=== PATIENT | female | born 1990 | race Caucasian/White ===

== ENCOUNTER 2016-08-30 08:08 | Emergency (ER) | payer SELFPAY ==
[~2016-08-30] VITALS: Ht 160 cm; Wt 50.0 kg
[2016-08-30 08:13] VITALS: Ht 160 cm; Wt 50.0 kg
--- NOTE | 2016-08-30 10:03 | ERA ---
ER Documentation Chief Complaint Date/Time DATE: 08/30/16 TIME: 09:57 Chief Complaint BROUGHT IN VIA EMS AND [employer] DUE TO ANXIETY HPI This 25-year-old female who apparently got in a taxicab and asked to go to a certain location. When the emt driver was told that the patient does not have any money he brought her back to her original point of origin. Patient was very upset started talking about suicide so the ambulance was called. Patient says she suicidal currently and if she can grab a knife right now she would take it and try to kill herself by stabbing herself. Patient says she tried to kill herself once by trying to overdose on melatonin. She was admitted to a [facility] hospital at that time. Patient says she is homeless and she is sick of sleeping in the wet grass ROS All systems reviewed and are negative except as per history of present illness. Medications Home Meds No Active Prescriptions or Reported Meds Allergies Allergies: Coded Allergies: No Known Allergy (Unverified , 08/30/16) PMhx/Soc History of Surgery: Yes (ABDOMINAL SURGERY ) Anesthesia Reaction: No Hx Alcohol Use: Yes Hx Substance Use: Yes Hx Tobacco Use: Yes Smoking Status: Current every day smoker FmHx Family History: No coronary disease Physical Exam Vitals Vital Signs Date Time Temp Pulse Resp B/P Pulse Ox O2 Delivery O2 Flow Rate FiO2 08/30/16 08:13 98.5 82 18 112/76 99 Physical Exam Const: Well-developed, well-nourished Head: Atraumatic, normocephalic Eyes: Normal Conjunctiva, PERRLA, EOMI, normal sclera, no nystagmus ENT: Normal External Ears, Nose and Mouth, moist mucus membranes. Neck: Full range of motion. No meningismus, no lymphadenopathy. Resp: Clear to auscultation bilaterally, no wheezing, rhonchi, rales Cardio: Regular rate and rhythm, no murmurs, S1 S2 present Abd: Soft, non tender x 4, non distended. Normal bowel sounds, no guarding or rebound, no pulsitile abdominal masses or bruits Skin: No petechiae or rashes, no ecchymosis , no maculopapular rash Back: No midline or flank tenderness Ext: No cyanosis, or edema, FROM x 4, normal inspection, neurovascularly intact x 4 Neur: Awake and alert, STR 5/5 x 4, sensation intact x 4, no focal findings, cerebellum intact Psych: Admits to suicidal ideation t Result Diagram: 08/30/16 1040 08/30/16 1040 Results 24 hrs Laboratory Tests Test 08/30/16 10:40 08/30/16 11:38 Acetaminophen Level < 10.0ug/ml Alanine Aminotransferase (ALT/SGPT) 23IU/L Albumin 4.4g/dl Albumin/Globulin Ratio 1.51 Alkaline Phosphatase 87IU/L Anion Gap 17 Aspartate Amino Transf (AST/SGOT) 19IU/L Basophils # 0.010^3/ul Basophils % 0.4% Blood Morphology Comment Blood Urea Nitrogen 8mg/dl Calcium Level 9.6mg/dl Carbon Dioxide Level 28mmol/L Chloride Level 102mmol/L Creatinine 0.55mg/dl Direct Bilirubin 0.00mg/dl Eosinophils # 0.010^3/ul Eosinophils % 0.2% Ethyl Alcohol Level < 10.0mg/dl Globulin 2.90g/dl Glucose Level 98mg/dl Hematocrit 43.2% Hemoglobin 14.4g/dl Indirect Bilirubin 0.1mg/dl Lymphocytes # 1.610^3/ul Lymphocytes % 23.2% Mean Corpuscular Hemoglobin 30.5pg Mean Corpuscular Hemoglobin Concent 33.3g/dl Mean Corpuscular Volume 91.7fl Mean Platelet Volume 11.3fl Monocytes # 0.410^3/ul Monocytes % 5.6% Neutrophils # 5.010^3/ul Neutrophils % 70.6% Nucleated Red Blood Cells # 0.010^3/ul Nucleated Red Blood Cells % 0.0/100WBC Platelet Count 19365^3/UL Potassium Level 4.1mmol/L Red Blood Count 4.7110^6/ul Red Cell Distribution Width 12.5% Salicylates Level < 1.0mg/dl Sodium Level 143mmol/L Total Bilirubin 0.1mg/dl Total Protein 7.3g/dl White Blood Count 7.110^3/ul Urine Amphetamines Screen POSITIVE Urine Barbiturates NEGATIVE Urine Benzodiazepines Screen NEGATIVE Urine Cannabinoids POSITIVE Urine Cocaine Screen NEGATIVE Urine Opiates Screen POSITIVE Procedures/MDM We will gets psych panel ordered and speak with tele-psychiatric doctor. We will get their input. I feel the patient is likely just upset because she is sick of sleeping in the wet grass and being homeless. This may be an attempt for her to get snf by claiming she is suicidal Patient has had psychiatric evaluation and she is on a 5150 hold going to be transferred to a psych facility for inpatient care Departure Diagnosis: Primary Impression: Suicidal ideation Condition: Stable KAYLEE MCKENZIE DO Aug 30, 2016 10:03
[2016-08-30 10:59] LABS: BASOPHILS % 0.4 % (0.0-2.0); EOSINOPHILS % 0.2 % (0.0-7.0); HEMATOCRIT 43.2 % (37.0-47.0); HEMOGLOBIN 14.4 g/dl (12.0-16.0); LYMPHOCYTES # 1.6 10^3/ul (0.8-2.9); LYMPHOCYTES % 23.2 % (15.0-51.0); MEAN CORPUSCULAR HEMOGLOBIN 30.5 pg (29.0-33.0); MEAN CORPUSCULAR HGB CONC 33.3 g/dl (32.0-37.0); MEAN CORPUSCULAR VOLUME 91.7 fl (82.0-101.0); MEAN PLATELET VOLUME 11.3 fl (7.4-10.4); MONOCYTE # 0.4 10^3/ul (0.3-0.9); MONOCYTES % 5.6 % (0.0-11.0); NEUTROPHILS % 70.6 % (39.0-77.0); PLATELET COUNT 165 10^3/UL (140-440); RED BLOOD COUNT 4.71 10^6/ul (4.20-5.40); RED CELL DISTRIBUTION WIDTH 12.5 % (11.5-14.5); UNCORRECTED WBC 7.1 10^3/ul (4.8-10.8); WHITE BLOOD COUNT 7.1 10^3/ul (4.8-10.8)
[2016-08-30 11:11] LABS: CONDITION 1
[2016-08-30 11:12] LABS: CHLORIDE 102 mmol/L (97-110)
[2016-08-30 11:13] LABS: ALBUMIN 4.4 g/dl (3.3-4.9)
[2016-08-30 11:14] LABS: POTASSIUM 4.1 mmol/L (3.5-5.1); SODIUM 143 mmol/L (135-144)
[2016-08-30 11:16] LABS: ALANINE AMINOTRANSFERASE 23 IU/L (13-69); ALBUMIN/GLOBULIN RATIO 1.51; ALKALINE PHOSPHATASE 87 IU/L (42-121); ANION GAP 17 (8-16); ASPARTATE AMINO TRANSFERASE 19 IU/L (15-46); BILIRUBIN,INDIRECT 0.1 mg/dl (0-1.1); BILIRUBIN,TOTAL 0.1 mg/dl (0.2-1.3); BLOOD UREA NITROGEN 8 mg/dl (7-20); CARBON DIOXIDE 28 mmol/L (21-31); CREATININE 0.55 mg/dl (0.44-1.00); TOTAL PROTEIN 7.3 g/dl (6.1-8.1)
[2016-08-30 11:17] LABS: ACETAMINOPHEN < 10.0 ug/ml (10.0-30.0); CALCIUM 9.6 mg/dl (8.4-10.2); GLUCOSE 98 mg/dl (70-220)
[2016-08-30 11:18] LABS: ETHANOL < 10.0 mg/dl; SALICYLATE < 1.0 mg/dl (5.0-30.0)
[2016-08-30 12:27] LABS: BARBITURATES NEGATIVE (NEGATIVE); BENZODIAZEPINES NEGATIVE (NEGATIVE); CANNABINOIDS POSITIVE (NEGATIVE); COCAINE NEGATIVE (NEGATIVE); OPIATES POSITIVE (NEGATIVE)
--- NOTE | 2016-08-30 13:39 | PSY ---
Date/Time of Note Date/Time of Note DATE: 08/30/16 TIME: 13:34 Psychiatric Subjective Eval Consent Pt consented to telemedicine: Yes Subjective Evaluation Patient location: emergency Chief Complaint: BROUGHT IN VIA EMS AND [employer] DUE TO ANXIETY History of present illness Pt is 25 yo single unemployed homeless female with hx heroin and meth use BIB EMS due to "anxiety". Pt says, she is suicidal and also has thoughts about harming random people "all the time". "If I would have a gun, I would not be here". She is scared about being homeless, hopeless and helpless. Irritable, hostile, labile affect. Denies AH/VH, says she is paranoid. Past psychiatric history none Hospitalization: no Family History denies Medical history Problems Medical Problems: (1) Suicidal ideation Status: Acute Allergies: Coded Allergies: No Known Allergy (Unverified , 08/30/16) Substance Abuse Substance abuse history: Yes Prior substance abuse treatmen: Yes Social History Marital status: single Level of education: DPA/Conservatorship: No Occupation/Snf: unemployed Psychiatric Objective Eval Physical Examination: Energy: Decreased Interest: Decreased Mental Status Examination: Appearance: Disheveled Eye Contact: Good Behavior: Cooperative, Hostile Speech: Clear AFFECT: Anxious Mood: Irritable Though Process: Linear Suicidal: Yes Homicidal: Yes On 72 hour hold: No Cognition: Alert Insight: Impared Judgement: Impared Laboratory Results Laboratory Tests Test 08/30/16 10:40 08/30/16 11:38 Acetaminophen Level < 10.0ug/ml Alanine Aminotransferase (ALT/SGPT) 23IU/L Albumin 4.4g/dl Albumin/Globulin Ratio 1.51 Alkaline Phosphatase 87IU/L Anion Gap 17 Aspartate Amino Transf (AST/SGOT) 19IU/L Basophils # 0.010^3/ul Basophils % 0.4% Blood Morphology Comment Blood Urea Nitrogen 8mg/dl Calcium Level 9.6mg/dl Carbon Dioxide Level 28mmol/L Chloride Level 102mmol/L Creatinine 0.55mg/dl Direct Bilirubin 0.00mg/dl Eosinophils # 0.010^3/ul Eosinophils % 0.2% Ethyl Alcohol Level < 10.0mg/dl Globulin 2.90g/dl Glucose Level 98mg/dl Hematocrit 43.2% Hemoglobin 14.4g/dl Indirect Bilirubin 0.1mg/dl Lymphocytes # 1.610^3/ul Lymphocytes % 23.2% Mean Corpuscular Hemoglobin 30.5pg Mean Corpuscular Hemoglobin Concent 33.3g/dl Mean Corpuscular Volume 91.7fl Mean Platelet Volume 11.3fl Monocytes # 0.410^3/ul Monocytes % 5.6% Neutrophils # 5.010^3/ul Neutrophils % 70.6% Nucleated Red Blood Cells # 0.010^3/ul Nucleated Red Blood Cells % 0.0/100WBC Platelet Count 26022^3/UL Potassium Level 4.1mmol/L Red Blood Count 4.7110^6/ul Red Cell Distribution Width 12.5% Salicylates Level < 1.0mg/dl Sodium Level 143mmol/L Total Bilirubin 0.1mg/dl Total Protein 7.3g/dl White Blood Count 7.110^3/ul Urine Amphetamines Screen POSITIVE Urine Barbiturates NEGATIVE Urine Benzodiazepines Screen NEGATIVE Urine Cannabinoids POSITIVE Urine Cocaine Screen NEGATIVE Urine Opiates Screen POSITIVE Assessment and Plan Assessment/Diagnosis [place] I: MAJOR DEPRESSIVE D/O SEVERE. POLYSUBSTANCE DEPENDENCE [place] II: DEFERED [place] III: NAD [place] IV: SEVERE [place] V: GAF 25 Recommendation/Plan Medication Management PLEASE MONITOR FOR OPIOID WITHDRAWALS, CONSDIER STARTING ONCLONIDINE PROTOCOL. FOR AGITATION: ATIVAN 2 MG PO PRN Q 8 HRS AGITATION Psychotherapy DEFER TO INPT Follow-up/Disposition PLEASE TRANSFER TO INPT PSYCH FOR DTS, DTO. 5150 Recommendation: LAINA Hanks MD Aug 30, 2016 13:39
[2016-08-30 17:21] VITALS: BP 108/66; PULSE 93; RESP 18; TEMP 98.2
== END 2016-08-30 17:22 ==
LOC: E/R 08:08
DX: F41.9 Anxiety disorder, unspecified (principal); R45.851 Suicidal ideations; F17.210 Nicotine dependence, cigarettes, uncomplicated
CPT/HCPCS: 80053; 80306; 80307; 85025